=== PATIENT | female | born 1940 | race Caucasian/White ===

== ENCOUNTER 2016-10-07 21:20 | Emergency (ER) | payer BC ==
[~2016-10-07] VITALS: Ht 162.6 cm; Wt 95.7 kg
[2016-10-07] MEDS ORDERED: LORAZEPAM 2 MG/ML VIAL. IV ONE (22:00)
[2016-10-07 22:26] LABS: BASO # 0.1 x10^3/uL (0.0-0.2); BASO % 2 % (0-3); EOS % 3 % (0-3); HEMATOCRIT 39.3 % (36.0-47.0); LYMPH # 2.2 x10^3/uL (1.0-4.8); LYMPH % 21 % (24-48); MEAN CORPUSCULAR HEMOGLOBIN 28 pg (25-35); MEAN CORPUSCULAR HGB CONC 33 g/dL (31-37); MEAN CORPUSCULAR VOLUME 85 fL (79-100); MONO % 7 % (0-9); NEUT % 67 % (31-73); PLATELET COUNT 214 x10^3/uL (140-400); RED CELL DISTRIBUTION WIDTH 14.8 % (11.5-14.5); WHITE BLOOD COUNT 10.2 x10^3/uL (4.0-11.0)
[2016-10-07 22:36] LABS: CALCIUM 8.8 mg/dL (8.5-10.1); GFR 54.3; POTASSIUM 3.5 mmol/L (3.5-5.1)
--- NOTE | 2016-10-07 22:44 | PHYS DOC ---
Past Medical History Past Medical History: CHF, Diabetes-Type II, Hypertension, Hypothyroid Past Surgical History: Cholecystectomy, Knee Replacement, Tonsillectomy, Other Additional Past Surgical Histo: BILATERAL MASTECTOMY Alcohol Use: None Drug Use: None Adult General Chief Complaint Chief Complaint: MECHANICAL FALL [facility] HPI Patient is a 75 year old female who presents by EMS for mechanical fall witnessed by bystanders. She was walking near a step in the dark at a wedding and fell to her left knee and face. She notes headache, neck pain, back pain, and general pain. States all joints hurt minimally, but left>right knees are worst. She is able to move all joints with pain but full strength and ROM. Pains are constant, achy. Notes chronic joint pains from arthritis. She denies vision changes, dizziness, numbness, tingling, weakness, nausea or vomiting, chest pain, dyspnea, diaphoresis, palpitations, abdominal pain, diarrhea, dysuria, saddle anesthesia. Denies blood thinner use. She notes chronic uncontrolled hypertension that runs 200-250 systolic. Review of Systems Review of Systems Constitutional: Denies fever or chills [] Eyes: Denies change in visual acuity, redness, or eye pain [] HENT: Denies nasal congestion or sore throat [] Respiratory: Denies cough or shortness of breath [] Cardiovascular: No additional information not addressed in HPI [] GI: Denies abdominal pain, nausea, vomiting, bloody stools or diarrhea [] : Denies dysuria or hematuria [] Musculoskeletal: Has back pain and joint pain [] Integument: Denies rash or skin lesions [] Neurologic: Denies focal weakness or sensory changes [] Endocrine: Denies polyuria or polydipsia [] Current Medications Current Medications Current Medications Medications (Trade) Dose Ordered Sig/[facility] Start Time Stop Time Status Last Admin Dose Admin Fentanyl Citrate (Fentanyl 2ml Vial) 25 mcg 1X ONCE 10/08/16 00:45 10/08/16 00:46 DC 10/08/16 00:51 25 MCG Ketorolac Tromethamine (Toradol) 10 mg 1X ONCE 10/08/16 00:45 10/08/16 00:46 DC 10/08/16 00:49 10 MG Lorazepam (Ativan) 1 mg 1X ONCE 10/07/16 22:00 10/07/16 22:01 DC 10/07/16 22:18 1 MG Meclizine HCl (Antivert) 12.5 mg 1X ONCE 10/08/16 00:45 10/08/16 00:46 DC 10/08/16 00:52 12.5 MG Allergies Allergies Allergies Coded Allergies Type Severity Reaction Last Updated Verified No Known Drug Allergies 10/07/16 No Physical Exam Physical Exam Constitutional: Well developed, well nourished, no acute distress, non-toxic appearance. [] HENT: Normocephalic, bilateral external ears normal, oropharynx moist, no oral exudates, nose normal. Hematoma to right eyebrow with ecchymosis, no laceration. No saldaña sign, hemotympanum, or raccoon eyes [] Eyes: PERRLA, EOMI, conjunctiva normal, no discharge. No subconjunctival hemorrhage [] Neck: No midline cervical spinal tenderness, no stridor. C-collar in place per EMS. Has tenderness to right paraspinal cervical muscles [] Cardiovascular:Heart rate regular rhythm [] Lungs & Thorax: Bilateral breath sounds clear to auscultation. No chest wall tenderness [] Abdomen: Bowel sounds normal, soft, no tenderness. [] Skin: Warm, dry, no erythema, no rash. [] Back: No midline spinal tenderness, no CVA tenderness. Has diffuse bilateral paraspinal muscle tenderness with no visual or palpable abnormality [] Extremities: No bony tenderness, ROM intact, no edema. Has slight ecchymosis to left anterior medial knee with mild tenderness [] Neurologic: Alert and oriented X 3, normal motor function, normal sensory function, no focal deficits noted. [] Psychologic: Affect normal, judgement normal, mood normal. [] Current Patient Data Vital Signs Vital Signs Date Time Temp Pulse Resp B/P (MAP) Pulse Ox O2 Delivery O2 Flow Rate FiO2 10/08/16 00:30 82 16 222/92 (135) 94 Room Air 10/07/16 21:39 97.7 97.7 Lab Values Laboratory Tests Test 10/07/16 22:00 White Blood Count 10.2 x10^3/uL (4.0-11.0) Red Blood Count 4.60 x10^6/uL (3.50-5.40) Hemoglobin 13.0 g/dL (12.0-15.5) Hematocrit 39.3 % (36.0-47.0) Mean Corpuscular Volume 85 fL (79-100) Mean Corpuscular Hemoglobin 28 pg (25-35) Mean Corpuscular Hemoglobin Concent 33 g/dL (31-37) Red Cell Distribution Width 14.8 % (11.5-14.5) H Platelet Count 214 x10^3/uL (140-400) Neutrophils (%) (Auto) 67 % (31-73) Lymphocytes (%) (Auto) 21 % (24-48) L Monocytes (%) (Auto) 7 % (0-9) Eosinophils (%) (Auto) 3 % (0-3) Basophils (%) (Auto) 2 % (0-3) Neutrophils # (Auto) 6.9 x10^3uL (1.8-7.7) Lymphocytes # (Auto) 2.2 x10^3/uL (1.0-4.8) Monocytes # (Auto) 0.7 x10^3/uL (0.0-1.1) Eosinophils # (Auto) 0.3 x10^3/uL (0.0-0.7) Basophils # (Auto) 0.1 x10^3/uL (0.0-0.2) Sodium Level 142 mmol/L (136-145) Potassium Level 3.5 mmol/L (3.5-5.1) Chloride Level 105 mmol/L (98-107) Carbon Dioxide Level 28 mmol/L (21-32) Anion Gap 9 (6-14) Blood Urea Nitrogen 29 mg/dL (7-20) H Creatinine 1.0 mg/dL (0.6-1.0) Estimated GFR (Cockcroft-Gault) 54.3 Glucose Level 259 mg/dL (70-99) H Calcium Level 8.8 mg/dL (8.5-10.1) Troponin I Quantitative < 0.017 ng/mL (0.000-0.055) Laboratory Tests 10/07/16 22:00 Laboratory Tests 10/07/16 22:00 EKG EKG By me as normal sinus rhythm, rate 88, no ST-T changes, normal intervals, no ectopy Radiology/Procedures Radiology/Procedures Chest xray as interpreted by me with no acute cardiopulmonary disease process Bilateral knee x-rays as interpreted by me with no acute fracture or dislocation , intact hardware CT head without contrast IMPRESSION No acute intracranial abnormality is seen. CT C-spine without contrast: Impression No acute findings. Electronically signed by: Feliciano Najera MD (October 07, 2016 23:31:30) CT t-spine and l-spine without contrast IMPRESSION THORACIC SPINE: Mild compression fractures of T4 and T6 of indeterminate age. LUMBAR SPINE: No acute compression fracture. Electronically signed by: Mras Tate MD (October 07, 2016 23:39:25) Course & Med Decision Making Course & Med Decision Making Pertinent Labs and Imaging studies reviewed. (See chart for details) Laboratory evaluation is unremarkable. Imaging as above; she states she has fallen prior with back injury and this is likely the vertebral fractures seen. She is feeling much better after medications. She is ambulatory and would like to go home. Return precautions given. She and family understand and agree with plan. Dragon Disclaimer Dragon Disclaimer This electronic medical record was generated, in whole or in part, using a voice recognition dictation system. Departure Departure Impression: Primary Impression: Closed head injury Additional Impressions: Traumatic hematoma of scalp Knee pain, bilateral Neck pain on right side Back pain Disposition: HOME, SELF-CARE Condition: STABLE Referrals: MALIA TAYLOR (PCP) Patient Instructions: Head Injury, Adult, [id number] Additional Instructions: Take Tylenol or ibuprofen as needed for moderate pain. Take hydrocodone as needed for severe pain. Do not drink, drive or operate heavy machinery after taking hydrocodone as it may make you sleepy. Take meclizine as needed for dizziness. Follow-up with your primary care doctor within one week. Return for any concerns. Scripts Meclizine Hcl (MECLIZINE HCL) 25 Mg Tablet 1 TAB PO PRN TID Y for DIZZINESS, #20 TAB Prov: Khadra YEH MD 10/08/16 Hydrocodone Bit/Acetaminophen (HYDROCODONE-APAP 5-325 ) 1 Each Tablet 1 TAB PO PRN Q6HRS Y for PAIN for 10 Days, TAB 0 Refills Prov: Khadra YEH MD 10/08/16 Problem Qualifiers Primary Impression: Closed head injury Encounter type: initial encounter Qualified Codes: S09.90XA - Unspecified injury of head, initial encounter Additional Impressions: Traumatic hematoma of scalp Encounter type: initial encounter Qualified Codes: S00.03XA - Contusion of scalp, initial encounter Knee pain, bilateral Chronicity: acute Qualified Codes: M25.561 - Pain in right knee; M25.562 - Pain in left knee Back pain Back pain location: back pain in unspecified location Chronicity: acute Back pain laterality: bilateral Qualified Codes: M54.9 - Dorsalgia, unspecified Khadra YEH MD October 07, 2016 22:44
--- NOTE | 2016-10-07 23:32 | RAD ---
PROCEDURE CT head and C-spine without contrast. HISTORY Fall headache and neck pain CT HEAD WITHOUT CONTRAST: Noncontrast axial cross sectional CT scanning of the head was performed. FINDINGS No acute intracranial hemorrhage or midline shift or mass-effect or hydrocephalus or extra-axial fluid collection is seen. No focal hypodense area is seen to indicate an acute infarct or edema radiographically. No skull fracture or pneumocephalus is seen. No opacification of the mastoid sinuses or the paranasal sinuses is seen. The maxillary sinuses are not completely seen in this study. IMPRESSION No acute intracranial abnormality is seen. CT C-spine without contrast: Axial helical imaging of the cervical spine was performed without contrast and axial coronal sagittal reconstruction was performed. There is mild reversal of the normal cervical lordosis. The vertebra bodies are otherwise aligned. The visualized osseous structures appear intact. There is diffuse circumferential disc osteophytic ridges at multiple levels resulting in flattening of thecal sac. Evaluation of the central canal is limited without contrast with is not appear to be gross flattening of the cord. There is moderate to marked narrowing of multiple neuroforamen. Impression No acute findings. PQRS Statement: One or more of the following individualized dose reduction techniques were utilized for this study: 1. Automated exposure control. 2. Adjustment of the mA and/or kV according to patient size. 3. Use of iterative reconstruction technique. Electronically signed by: Feliciano Najera MD (October 07, 2016 23:31:30)
--- NOTE | 2016-10-07 23:40 | RAD ---
PROCEDURE CT study of the thoracic and lumbar spine without contrast HISTORY Fall. Back pain. TECHNIQUE Noncontrast helical CT scanning of the thoracic and lumbar spine were performed. Multiplanar 2D reconstructions were generated. One or more of the following individualized dose reduction techniques were utilized for this study: 1. Automated exposure control 2. Adjustment of the mA and/or kV according to patient size 3. Use of iterative reconstruction technique COMPARISON None available. FINDINGS THORACIC SPINE: There are mild compression fractures of T4 and T6 of indeterminate age. No posterior protrusion of bony elements are seen extending into the spinal canal. No osteolytic process or discitis is seen. No prominent focal disc protrusion is seen. LUMBAR SPINE: No compression fracture or discitis or osteolytic process or spondylolysis is seen.There is mild spinal canal stenosis at L3-4. There is a mild diffuse disc bulge at L4-5. There is moderate spinal canal stenosis at L4-5. There is mild narrowing of the neural foramina bilaterally at L4-5. There is minimal grade 1 anterolisthesis of L5-S1. There is a mild transverse spinal canal stenosis at L5-S1. The transverse processes are intact. IMPRESSION THORACIC SPINE: Mild compression fractures of T4 and T6 of indeterminate age. LUMBAR SPINE: No acute compression fracture. Electronically signed by: Mars Tate MD (October 07, 2016 23:39:25)
[2016-10-08 00:30] VITALS: BP 222/92
[2016-10-08] MEDS ORDERED: fentaNYL PF VIAL 100 MCG/2 ML VIAL IV ONE ×2 (00:30→00:45)
[2016-10-08] MEDS ORDERED: MECLIZINE HCL 12.5 MG TABLET. PO ONE (00:45)
[2016-10-08] MEDS ORDERED: KETOROLAC 15 MG/ML VIAL. IV ONE (00:45)
[2016-10-08] MEDS ORDERED: HYDR-2666 PO (01:41)
[2016-10-08] MEDS ORDERED: MECL25TA3 PO (01:41)
--- NOTE | 2016-10-08 08:20 | RAD ---
Indication syncopal episode. Protocol study. A single view of the chest was obtained. No prior imaging of the chest is available. There is mild cardiomegaly. There is no gross congestive heart failure. A focal infiltrate is not seen. No acute finding is apparent in the chest. IMPRESSION: No acute finding apparent in the chest
--- NOTE | 2016-10-08 08:22 | RAD ---
Indication fall, pain. AP oblique and lateral views of both knees were obtained. Views of the right knee demonstrate a total knee replacement. No complication is seen. No acute bony finding is apparent. Views of the left knee also demonstrate a total knee replacement. Again no complication is seen. No acute finding is apparent. IMPRESSION: No acute finding seen involving either knee
--- NOTE | 2016-10-08 09:15 | EKG ---
[facility] [address] [place] [address] Test Date: 2016-10-07 Test Time: 22:07:08 Pat Name: JEREMIAH CELESTIN Department: Room: Gender: F Laborer: : 1940 Requested By: Khadra YEH Order Number: [id number] Reading MD: Melva Eddy Measurements Intervals [place] Rate: 88 P: 41 UT: 142 QRS: -27 QRSD: 102 T: 88 QT: 384 QTc: 468 Interpretive Statements SINUS RHYTHM LEFTWARD AXIS LVH WITH REPOLARIZATION ABNORMALITY RI6.01 Unconfirmed report No previous ECG available for comparison Electronically Signed On 10-09-2016 18:07:14 CDT by Melva Eddy
== END 2016-10-08 02:14 | disposition home or self-care (01) ==
LOC: ER 21:20
DX: S00.03XA Contusion of scalp, initial encounter (principal); M54.2 Cervicalgia; M25.561 Pain in right knee; M25.562 Pain in left knee; M54.9 Dorsalgia, unspecified; E03.9 Hypothyroidism, unspecified; E11.9 Type 2 diabetes mellitus without complications; I11.0 Hypertensive heart disease with heart failure; I50.9 Heart failure, unspecified; Z90.49 Acquired absence of other specified parts of digestive tract; W18.39XA Other fall on same level, initial encounter; Y93.89 Activity, other specified; Y99.8 Other external cause status; Y92.89 Other specified places as the place of occurrence of the external cause
CPT/HCPCS: 36415; 70450; 71010; 72125; 72128; 72131; 73562; 80048; 84484; 85027; 93005; 96374; 96375; 99285; J1885; J2060; J3010; J8597